=== PATIENT | female | born 1980 | race Caucasian/White ===

== ENCOUNTER 2024-01-12 09:13 | Outpatient (AMB) | payer OTHER, SELFPAY ==
--- NOTE | 2024-01-12 09:32 | AM.OFFWIN_ITS ---
Intake Vital Signs 01/12/24 09:41 Height 5 ft 3 in Weight 198 lb 8 oz BMI 35.2 BP 110/80 Blood Pressure Location Rt brachial Respiration 16 Pulse 85 Pulse Source Pulse Oximeter Temp 98.2 F Temp Source Oral Intake Visit Reasons: back pain Intake Note: Lower back pain Patient Tobacco Use Status: Never used Tobacco Is last menstrual period known: Yes Last menstrual period: 01/09/24 Patient : No Allergies azithromycin Allergy (Severe, Verified 01/12/24 09:47) stomach pain latex Allergy (Unknown, Verified 01/12/24 09:47) rash Medication List - Last Reconciled 01/12/24 by Bernardo Dallas CNP albuterol sulfate 90 mcg/actuation inhalation cetirizine (Zyrtec) 10 mg PO DAILY PRN cyclobenzaprine 5 mg PO BEDTIME famotidine (Pepcid) 20 mg PO DAILY fluticasone propionate 220 mcg/actuation 2 puffs inhalation BID fluticasone propionate 50 mcg/actuation 2 sprays intranasal DAILY Do you need a note to return to daycare/school/sports/work: No HPI HPI Comments History of Present Illness Details 43-year-old female presents with complai nts of persistent low back pain for the past 3 weeks. She describes the pain as tightness, achy, and pressure. She also notes burning sensation to her right hip. She states that the pain is worse with position changes. She has been taking an old script of cyclobenzaprine 5 mg 3 times daily as needed and apply warm compresses without relief. She notes that she has had intermittent low back pain since she fell and landed on her coccyx at 4th grade. The last time she experienced back pain before her current symptoms was a year and half ago. The pain does not radiates to her lower extremities. She denies tingling, numbness, or loss of sensation. She notes that saw chiropractor in the past with good improvement. She has never had physical therapy for back pain. [facility] Social History Patient Tobacco Use Status: Never used Tobacco Patient : No Female Reproductive History Menstrual Date of last menstrual period: 01/09/24 Review of Systems Const Details: Const Denies chills, Denies fatigue, Denies fever(s), Denies headache(s) and Denies weakness ENT Denies dizziness and Denies headache(s) Card Denies chest pain, Denies lightheadedness, Denies dyspnea and Denies other (Palpitations) Resp Denies cough, Denies dyspnea, Denies wheezing and Denies other ( shortness of breath) GI Denies abdominal pain, Denies melena, Denies hematochezia, Denies change in bowel habits, Denies dyspepsia and Denies nausea Denies hematuria and Denies dysuria Musc Reports as per HPI Skin/Breast Denies rash, Denies unusual bruising and Denies wounds Neuro Denies abnormal gait, Denies dizziness, Denies headache(s), Denies memory loss, Denies numbness, Denies Sensory deficit (Neuro), Denies tingling and Denies weakness Psych Denies anxiety, Denies depression, Denies memory loss Endo Denies cold intolerance, Denies fatigue, Denies heat intolerance, Denies polydipsia and Denies polyuria Aller/Immun Denies wheezing Physical Exam Vital Signs: Last Vital Signs Temp 98.2 F 01/12/24 09:41 Pulse 85 01/12/24 09:41 Resp 16 01/12/24 09:41 BP 110/80 01/12/24 09:41 BMI result Body Mass Index 35.2 Const Other: Const General: well developed; No acute distress Nutritional Appearance: well nourished Orientation/consciousness: patient oriented x3 HEENT Head: Yes normocephalic and Yes atraumatic Eyes General: appearance normal, both eyes and all related structures Pupils: Equal, round and reactive pupils present EOM: EOMs intact bilaterally Resp Effort & Inspection: normal respiratory effort Auscultation: clear to auscultation bilaterally Cardio Rate: regular rate Rhythm: regular rhythm Heart sounds: S1 normal heart sound present, S2 normal heart sound present, no gallops, no murmurs and no rubs Bruits: no abdominal aortic bruits and no carotid bruits Back/Spine/Pelvis Back: no CVA tenderness Cervical Spine: cervical ROM normal and No Cervical spine tenderness Thoracic/Lumbar Spine: thoraco-lumbar ROM normal, No pain with thoraco-lumbar ROM, No thoracic spinal tenderness and No lumbar spinal tenderness Extrem General: Yes normal to inspection, No edema and No calf tenderness Negative straight leg raise bilaterally Neuro General: patient oriented x3 and gait normal, no focal neuro deficit Cranial nerves: Yes Equal, round and reactive pupils present Psych Affect: normal affect Assessment & Plan Assessment & Plan (1) Acute exacerbation of chronic low back pain: Code(s): M54.50 - Low back pain, unspecified; G89.29 - Other chronic pain Plan: Persistent pain x3 weeks, refractory to cyclobenzaprine 5 mg 3 times daily and warm compresses Lumbar spine nontender to palpation Naproxen ordered. Take as prescribed Will increase cyclobenzaprine to 10 mg 3 times daily. Take as prescribed Instructed on the risks, benefits, and potential adverse reactions of the medications Warm/cold compresses encouraged Follow-up with PCP with worsening or new symptoms. May referred to physical therapy Verbalized understanding and agreed with treatment plan Medications: New cyclobenzaprine 10 mg PO TID PRN 90 tabs 1RF muscle spasm naproxen 500 mg PO BID PRN 60 tabs 1RF pain Coding Level of Care Code Est Pt Level 3 (69741) Diagnoses Acute exacerbation of chronic low back pain M54.50; G89.29
[2024-01-12 09:41] VITALS: BP 110/80; PULSE 85; RESP 16; TEMP 36.8; BMI 35.2
== END 2024-01-12 09:59 | disposition home or self-care (01) ==
PROVIDERS: PCP Internal Medicine; Visit Provider Nurse Practitioner Family
DX: M54.50 Low back pain, unspecified (principal); G89.29 Other chronic pain
CPT/HCPCS: 99213

== ENCOUNTER 2024-06-11 13:10 | Outpatient (AMB) | payer OTHER, SELFPAY ==
[2024-06-11 13:21] VITALS: BP 104/52; PULSE 106; O2SAT 98; BMI 36.1
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
== END 2024-06-11 16:48 | disposition home or self-care (01) ==
PROVIDERS: PCP Internal Medicine; Visit Provider Internal Medicine
DX: R73.03 Prediabetes (principal); E66.01 Morbid (severe) obesity due to excess calories; Z68.36 Body mass index [BMI] 36.0-36.9, adult
CPT/HCPCS: 99214

== ENCOUNTER 2024-06-11 14:04 | Outpatient (REF) | payer OTHER, SELFPAY ==
[2024-06-12 05:18] LABS: Estimated Average Glucose 140 mg/dL; Hemoglobin A1c % 6.5 % (<6.0)
== END 2024-06-11 14:05 | disposition home or self-care (01) ==
LOC: HO.WFDLDS 14:04
PROVIDERS: Visit Provider Internal Medicine
DX: R73.03 Prediabetes (principal)
CPT/HCPCS: 36415; 83036

== ENCOUNTER 2024-07-23 07:01 | Outpatient (RCR) | payer OTHER, SELFPAY ==
[2024-06-25 07:10] VITALS: BP 108/60; PULSE 97; O2SAT 97
== END 2024-09-05 10:07 | disposition home or self-care (01) ==
LOC: HO.PTWFD 07:01
PROVIDERS: PCP Internal Medicine
DX: M54.50 Low back pain, unspecified (principal)
CPT/HCPCS: 97110; 97140; 97161; 97535

== ENCOUNTER 2024-08-16 09:21 | Outpatient (REF) | payer OTHER, SELFPAY ==
--- NOTE | ~2024-08-16 | XR_ITS ---
EXAMINATION: XR ABDOMEN KUB CLINICAL INDICATION: Abdominal pain. COMPARISON: None available. TECHNIQUE: AP supine views of the abdomen. FINDINGS: Nonobstructive bowel gas pattern. Mild stool burden. Phlebolith within the right pelvis. No abnormal soft tissue calcification. No acute osseous abnormality. XR/XR KUB IMPRESSION: Nonobstructive bowel gas pattern. Mild stool burden. Electronically signed by: Jelani Yang MD 08/16/2024 12:33 PM [facility]
== END 2024-08-16 09:22 | disposition home or self-care (01) ==
LOC: HO.XRAY 09:21
PROVIDERS: PCP Internal Medicine; Visit Provider Internal Medicine
DX: R10.9 Unspecified abdominal pain (principal)
CPT/HCPCS: 74018

== ENCOUNTER 2024-08-16 09:21 | Outpatient (AMB) | payer OTHER, SELFPAY ==
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
[2024-08-16 09:41] VITALS: BP 112/76; PULSE 116; TEMP 36.8; O2SAT 97; BMI 33.9
== END 2024-08-16 10:30 | disposition home or self-care (01) ==
PROVIDERS: PCP Internal Medicine; Visit Provider Internal Medicine
DX: R10.84 Generalized abdominal pain (principal); R10.9 Unspecified abdominal pain; N91.2 Amenorrhea, unspecified

== ENCOUNTER 2024-08-16 10:22 | Outpatient (REF) | payer OTHER, SELFPAY ==
[2024-08-16 14:05] LABS: MANUAL DIFF FLAG NO
[2024-08-16 14:13] LABS: Basophils Percent Auto 0.3 % (0-2); Eosinophils Absolute Auto 0.1 X10*3/uL (0.0-0.4); Eosinophils Percent Auto 0.8 % (0-4); Hemoglobin 12.3 g/dl (12.0-16.0); Imm Gran Abs Auto 0.04 X10*3/uL (0.00-0.03); Imm Gran Pct Auto 0.5 % (0.0-0.4); Lymphocytes Absolute Auto 0.8 X10*3/uL (1.2-4.9); Lymphocytes Percent Auto 10.8 % (20-40); Mean Corpuscular HGB Conc 33.2 g/dl (31.0-35.0); Mean Corpuscular Hemoglobin 27.7 pg (27.0-33.0); Mean Corpuscular Volume 83.3 fL (80.0-98.0); Mean Platelet Volume 9.4 fL (9.4-12.3); Monocytes Absolute Auto 0.3 X10*3/uL (0.1-1.2); Monocytes Percent Auto 3.9 % (2-11); Neutrophils Absolute Auto 6.2 x10*3/uL (2.0-8.3); Neutrophils Percent Auto 83.7 % (45-73); Platelet Count 365 X10*3/uL (160-400); Red Blood Count 4.44 X10*6/uL (4.20-5.50); Red Cell Distribution Width 13.2 % (11.0-16.0); White Blood Count 7.4 X10*3/uL (4.8-10.8)
[2024-08-16 14:26] LABS: Anion Gap 11 (12-20); Blood Urea Nitrogen 18 mg/dL (9-16); Calcium 9.2 mg/dL (8.4-10.2); Carbon Dioxide 26 mmol/L (22-29); Chloride 101 mmol/L (96-108); Estimated Glomerular Filt Rate > 60; Glucose Random 128 mg/dL (60-115); Potassium 3.6 mmol/L (3.3-5.1); Sodium 134 mmol/L (135-145)
[2024-08-16 14:46] LABS: Erythrocyte Sedimentation Rate 59 MM/HR (0-20)
[2024-08-17 14:09] LABS: Lutenizing Hormone 4.9 mIU/mL
[2024-08-25 04:03] LABS: Estradiol Ultra Sensitive 186 pg/mL
== END 2024-08-16 10:23 | disposition home or self-care (01) ==
LOC: HO.WFDLDS 10:22
PROVIDERS: Visit Provider Internal Medicine
DX: R10.9 Unspecified abdominal pain (principal); N91.2 Amenorrhea, unspecified
CPT/HCPCS: 36415; 80048; 82670; 83002; 85025; 85652

== ENCOUNTER 2024-09-06 09:02 | Outpatient (AMB) | payer OTHER, SELFPAY ==
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
[2024-09-06 09:38] VITALS: BP 98/76; PULSE 116; O2SAT 97; BMI 33.0
== END 2024-09-06 10:09 | disposition home or self-care (01) ==
PROVIDERS: PCP Internal Medicine; Visit Provider Internal Medicine
DX: E11.9 Type 2 diabetes mellitus without complications (principal); J45.40 Moderate persistent asthma, uncomplicated

== ENCOUNTER → 2024-09-06 09:02 | Outpatient (BNVA) | payer OTHER, SELFPAY | PROVIDERS: PCP Internal Medicine; Visit Provider Internal Medicine ==

== ENCOUNTER 2024-12-18 07:45 | Outpatient (REF) | payer OTHER, SELFPAY ==
[2024-12-18 09:18] LABS: Estimated Average Glucose 123 mg/dL; Hemoglobin A1c % 5.9 % (<6.0)
[2024-12-18 09:41] LABS: Cholesterol 219 mg/dL (<200); HDL Cholesterol 34 mg/dL (>40); LDL Cholesterol Calculated 154 mg/dL (<100); Triglycerides 157 mg/dL (<150)
== END 2024-12-18 07:46 | disposition home or self-care (01) ==
LOC: HO.WFDLDS 07:45
PROVIDERS: Visit Provider Internal Medicine
DX: E11.9 Type 2 diabetes mellitus without complications (principal); Z13.220 Encounter for screening for lipoid disorders
CPT/HCPCS: 36415; 80061; 83036

== ENCOUNTER 2025-03-11 08:58 | Outpatient (AMB) | payer OTHER, SELFPAY ==
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
[2025-03-11 09:07] VITALS: BP 114/68; PULSE 99; TEMP 37; O2SAT 98; BMI 28.5
--- OUTSIDE RECORDS SUMMARY | 2025-03-11 09:35 | XMS_ITS | Data Portability ---
Author Organization [place] [facility], Allergy Address [address] [address] Care Team Providers Care It Operations Analyst Name Role Phone ANDREA FUENTESAH Primary Care Provider [phone] Assessment Encounter Date Assessment Date Assessment LastModified by Organization Details LastModified Time 06/26/2024 06/26/2024 Patient's status post balloon dilation of eustachian tubes with placement of temporary ventilation tubes 11/24/2023. Today's exam reveals that the right tube has extruded, the tympanic membrane has healed, and while there is no effusion, there is a mild global retraction without unsafe pockets or debris collection. Recommend fluticasone during the cold and flu season and her allergy exacerbations. For the itching, we reviewed the rationale for dry ear precautions and how to accomplish this. Can use Lotrisone for several days at a time during flare-ups, but no longer than two weeks in a row due to possibility of skin thinning from the steroid. Follow up in 6 months for tube check, sooner with issues. [email or web address] Not available 06/26/2024 10:49:39 09/23/2024 09/23/2024 44-year-old sony gallegos presents for reevaluation following eustachian tube dilation. On examination bilateral tubes have extruded and were removed from the canal. Right TM is normal to inspection without retraction and with well aerated middle ear space. The left ear shows a generally thickened drum which makes assessment of the middle ear somewhat difficult. Audiometric testing today shows normal hearing and type a tympanogram bilaterally. The sensation of hearing her breath is likely related to patulous eustachian tube. She does continue to use Flonase which may be exacerbating the issue. I have recommended she discontinue use of Flonase. If she continues to have symptoms could consider patulend. For eczema in the ear recommended DermOtic with continued use of Lotrisone. Follow-up in 2 to 3 months for reevaluation. [email or web address] Not available 09/23/2024 12:06:04 02/12/2025 02/12/2025 Status post bilateral balloon dilation of eustachian tube back in November 2021. Her obstructive eustachian tube dysfunction has resolved. Unfortunately it appears that her right side has developed patulous eustachian tube. This is not present on the left side. Today we discussed the pathophysiology of this process and how it is responsible for her autophony and fluctuating pressure sensation. Today we discussed the treatments available for patulous eustachian tube including use of Patulend nasal drops, compounded estrogen nose drops versus consultation with Dr. Sin Denton at [facility] to discuss other treatments for patulous eustachian tube. She has taken this under advisement and will think about these options prior to making any decisions. [email or web address] Not available 02/12/2025 10:09:31 Plan of Treatment Reminders Order Date Submit Date Provider Last Modified By Organization Details Last Modified Time Details Appointments None recorded. Lab None recorded. Referral None recorded. Procedures None recorded. Surgeries None recorded. Imaging None recorded. Medication Orders fluocinolon e acetonide oil 0.01 % ear drops 2023 024 [id number], [address], [place], [id number], 4 12:06:56 clotrimazol e-betametha sone 1 %-0.05 % topical cream 2023 025 [place] [id number], [address], [place], [id number], 5 09:52:15 Patient TargetsNo targets recorded. Patient InstructionsNo instructions recorded. Reason for Referral None Reported. Results Created Date Observation Date Name Description Value Unit Range Abnormal Flag Note LastModifiedBy Organization Detail LastModifiedTime 05/23/20 24 12/21/2023 imagi ng/di agnos tic resul t No observ ation record ed. [email or web address] Not Available 03:40:24 05/23/20 24 07/14/2022 imagi ng/di lolis tic resul t No observ ation record ed. [email or web address] Not Available 03:40:59 06/27/20 24 audio gram No observ ation record ed. [email or web address] Not Available 06/03 14:19:59 09/23/20 24 audio gram No observ ation record ed. [email or web address] Not Available 2023 13:53:00 02/13/20 audio gram No observ ation record ed. [email or web address] Not Available 2024 12:04:23 Result Notes None recorded. Problems Name Problem SNOMED Code Status Onset Date Resolution Date Notes Provider Name and Address Organization Details Recorded Time Bilateral tinnitus 08064494281 02 Active 2021 Tinnitus, bilateral ; Note: Date Diagnosed : 2 2:27 PM (H93.13) Not Available [facility] 4 02:48:04 Bilateral disorder of Eustachia n tubes 44965924459 17552 Active 2021 Other specified disorders of Eustachia n tube, bilateral ; Note: Date Diagnosed : 2 2:23 PM (H69.83) Not Available [facility] 4 02:48:08 Recurrent acute serous otitis media of left middle ear 64169755910 84990 Active 2022 Acute serous otitis media, recurrent , left ear; Note: Date Diagnosed : 06/15/2023 9:17 AM (H65.05) Not Available [facility] 4 02:48:04 Adhesive middle ear disease 2806434 Active 2022 Adhesive middle ear disease, bilateral ; Note: Date Diagnosed : 01/24/2023 4:59 PM (H74.13) Not Available [facility] 4 02:48:06 Allergic urticaria 87335149 Active 2023 Allergic urticaria ; Note: Date Diagnosed : 10/03/2023 3:03 PM (L50.0) Not Available [facility] 4 02:48:04 Dermal mycosis 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 Active 2023 VICKIE JEFFRIES MD [address] [facility],[place] [address], [place], [address] , [facility] - [facility] 4 15:32:48 Chronic mycotic otitis externa 098216046 Active 2023 VICKIE JEFFRIES MD [address] [facility],[place] [address], [place], [address] , [facility] - [facility] 4 15:32:48 Candidal otitis externa 83882906 Active 2023 VICKIE JEFFRIES MD [address] [facility],[place] [address], [place], [address] , [facility] - [facility] 4 15:32:48 Acute maxillary sinusitis 68284316 Active 2023 VICKIE JEFFRIES MD [address] [facility],[place] [address], [place], [address] , [facility] - [facility] 4 15:35:32 Eczema of external auditory canal 14338362 Active 2023 APPLE STEINBERG PA-C [address] [facility],[place] [address], [place], [address] , [facility] - [facility] 4 12:06:14 Sensorine ural hearing loss of bilateral ears 212661121 Active 2024 Bola KESSLER [address] [facility],[place] [address], [place], [place], [address] , [facility] - [facility] 5 09:15:21 Patulous right Eustachia n tube 34472442819 05938 Active 2024 VICKIE JEFFRIES MD [address] [facility],[place] [address], [place], [address] , [facility] - [facility] 5 10:06:24 Problem Notes None recorded. Procedures Surgical History Date Name Laterality Status Provider Name and Address Organization Details Recorded Time 02/13/20 25 Air & Speech Audio with Tymps - 74770, 74520 & 96833 completed Bola KESSLER [address] [facility], [place], [address], [facility] 02/12/2025 09:14:02 09/23/20 24 Air & Speech Audio with Tymps - 83328, 84414 & 34017 completed JUAN PABLO TROYEDIE, AUD [address] [facility] [address], [place], [address], [facility] 09/23/2024 10:27:29 06/26/20 24 Tympanometry - 23041 completed SANCHEZDEMETRICE ACOSTA, AUD [address] [facility] [address], [place], [address], [facility] 06/26/2024 10:19:39 Imaging Results None recorded. Procedure Notes None recorded. Medical Equipment None Reported. Allergies Allergen ID Allergen Name Allergen Category Reaction Reaction Severity Criticality Documentation Date Start Date Code Code System Note Provider Name and Address Organization Details Recorded Time [id number] linalool, (+-)- Not available other Not available Not available 02/13/2024 48291 96 RxNorm React ion: Unkno wn; Not Available [facility] 4 01:12:33 331928 Latex (substanc e) environme nt,medica tion other Not available Not available 05/03/2024 15805 8007 SNOMED React ion: Unkno wn; Not Available [facility] 4 00:30:53 817002 2-methyl- 4-isothia zolin-3-o ne Not available other Not available Not available 05/03/2024 44210 66 RxNorm React ion: Unkno wn; Not Available [facility] 4 00:30:53 725436 methyldib tinsley glutaroni trile Not available other Not available Not available 05/03/2024 16380 44 RxNorm React ion: Unkno wn; Not Available [facility] 4 00:30:54 328450 [place] oil medicatio n other Not available Not available 05/03/2024 16251 14 RxNorm React ion: Unkno wn; Not Available [facility] 4 00:30:54 Medications Name Sig Start Date Stop Date Status Note LastModified by Organization Details LastModified Time cyclobenzap rine 10 mg tablet TAKE 1 TABLET BY MOUTH THREE TIMES DAILY NEEDED FOR MUSCLE SPASM 02/12 completed Not Available Not Available Not Available amoxicillin 500 mg capsule TAKE 1 CAPSULE BY MOUTH THREE TIMES DAILY FOR 10 DAYS 02/19 completed Not Available Not Available Not Available acetaminoph en 325 mg tablet TAKE 2 TABLETS BY MOUTH EVERY 4 HOURS NEEDED FOR PAIN active Not Available Not Available No t Available prednisone 10 mg tablet 02/19 completed Not Available Not Available Not Available doxycycline hyclate 100 mg capsule TAKE 1 CAPSULE BY MOUTH TWICE DAILY FOR 10 DAYS 02/19 completed Not Available Not Available Not Available cetirizine 10 mg tablet 1 tablet every day by oral route. 02/11 completed Not Available Not Available Not Available ibuprofen 800 mg tablet TAKE 1 TABLET BY MOUTH EVERY 8 HOURS. DO NOT USE IF USING NAPROXEN active Not Available Not Available No t Available benzonatate 200 mg capsule TAKE 1 CAPSULE BY MOUTH THREE TIMES DAILY NEEDED FOR COUGH 02/19 completed Not Available Not Available Not Available senna 8.6 mg tablet TAKE 2 TABLETS BY MOUTH EVERY NIGHT AT BEDTIME NEEDED FOR CONSTIPAT ION active Not Available Not Available No t Available prednisone 20 mg tablet TAKE 2 TABLETS BY MOUTH DAILY FOR 5 DAYS 02/19 completed Not Available Not Available Not Available spironolact one 100 mg tablet TAKE 1 TABLET BY MOUTH DAILY active Not Available Not Available No t Available pimecrolimu s 1 % topical cream APPLY TOPICALLY TO THE AFFECTED AREA TWICE DAILY active Not Available Not Available No t Available Accu-Chek Softclix Lancets USE TO TEST DIRECTED 02/11 completed Not Available Not Available Not Available phentermine 37.5 mg tablet 1 tablet every day by oral route. 2023 active Not Available Not Available Not Avai lable minoxidil 2.5 mg tablet TAKE 1/2 TABLET BY MOUTH DAILY active Not Available Not Available No t Available ofloxacin 0.3 % ear drops INSTILL 3 DROPS IN BOTH EARS TWICE DAILY 02/19 completed Not Available Not Available Not Available famotidine 20 mg tablet 1 tablet every day by oral route. active Not Available Not Available No t Available clotrimazol e-betametha sone 1 %-0.05 % topical cream APPLY TO THE SKIN OF THE AFFECTED EXTERNAL EAR CANAL WITH FINGERTIP THREE TIMES DAILY FOR 2 WEEKS 02/12 completed Not Available Not Available Not Available bisacodyl 5 mg tablet,sindy yed release TAKE 1 TABLET BY MOUTH DAILY active Not Available Not Available No t Available epinephrine 0.3 mg/0.3 mL injection, auto-inject or INJECT 1 PEN IN THE MUSCLE ONE TIME DIRECTED NEEDED active Not Available Not Available No t Available polyethylen e glycol 3350 17 gram/dose oral powder DISSOLVE 17 GRAMS IN WATER AND DRINK DAILY active Not Available Not Available No t Available albuterol sulfate HFA 90 mcg/actuati on aerosol inhaler INHALE 2 PUFFS BY MOUTH EVERY 4 HOURS active Not Available Not Available No t Available fluticasone propionate 50 mcg/actuati on nasal spray,suspe nsion SHAKE LIQUID AND USE 2 SPRAYS IN EACH NOSTRIL DAILY active Not Available Not Available No t Available phentermine 37.5 mg capsule TAKE 1 CAPSULE BY MOUTH DAILY 02/11 completed Not Available Not Available Not Available naproxen 500 mg tablet TAKE 1 TABLET BY MOUTH TWICE DAILY NEEDED FOR PAIN active Not Available Not Available No t Available amoxicillin 875 mg-potassiu m clavulanate 125 mg tablet TAKE 1 TABLET BY MOUTH EVERY 12 HOURS FOR 7 DAYS WITH FOOD OR MILK 02/11 completed Not Available Not Available Not Available simethicone 80 mg chewable tablet CHEW AND SWALLOW 2 TABLETS BY MOUTH THREE TIMES DAILY NEEDED FOR GAS active Not Available Not Available No t Available oxycodone 5 mg tablet TAKE 1 TABLET BY MOUTH EVERY 6 HOURS NEEDED FOR PAIN active Not Available Not Available No t Available fluocinolon e acetonide oil 0.01 % ear drops INSTILL 2 DROPS IN THE EAR TWICE WEEKLY NEEDED FOR ITCHING active Not Available Not Available No t Available Accu-Chek Guide test strips USE DIRECTED ONCE DAILY 02/11 completed Not Available Not Available Not Available Accu-Chek Guide Me Glucose Meter USE DIRECTED 02/11 completed Not Available Not Available Not Available Vitals Date Recorded Body height Provider Name an d Address Organization Details Last Updated DateTime 02/12/2025 160.02 cm Zaynab Loera [place] - [facility] 02/12/2025 09:51:08 Date Recorded Body height Body mass index (BMI) Body weight Provider Name and Address Organization Details Last Updated DateTime 06/26/2024 160.02 cm 35.4 kg/m2 62833.47 g Edilma Drew [facility] 06/26/2024 10:04:23 Date Recorded Body height Body mass index (BMI) Body weight Provider Name and Address Organization Details Last Updated DateTime 09/23/2024 160.02 cm 35.4 kg/m2 88620.47 g Jane Lang [facility] 09/23/2024 10:07:43 Social History Question Answer Notes LastModified by Organizat ion Details LastModified Time Tobacco Smoking Status Never Smoker Zaynab dior [facility] 02/20/2024 15:22:06 What Type Of Testing Director Do You Use? None [email or web address] Information not available 02/12/2025 Do You Have Any Pets? Yes [email or web address] Information not available 02/12/2025 Are You Passively Exposed To Smoke? No [email or web address] Information not available 02/12/2025 Are There Any Smokers In Your House? No [email or web address] Information not available 02/12/2025 Sex: Unknown Functional Status Question Answer Note LastModified by Organization Details LastModified Time Do you use any illicit or recreational drugs? No [email or web address] Information not available 02/12/2025 Do you or have you ever used any other forms of tobacco or nicotine? No [email or web address] Information not available 02/12/2025 What is your level of alcohol consumption? None [email or web address] Information not available 02/12/2025 What type of noise exposure are you exposed to? noExposureToExcessiveNoise [email or web address] Infor mation not available 02/12/2025 Mental Status None recorded. Family History Relationship Description Onset Age of this Age Resolved Age Notes LastModified by Organization Details LastModified Time Mother Migraine [email or web address] Not avail able 02/12/2025 09:53:39 Mother Vertigo [email or web address] Not availa ble 02/12/2025 09:53:40 Mother Diabetes mellitus [email or web address] Not available 09:53:40 Sister Migraine [email or web address] Not avail able 02/12/2025 09:53:40 Father Hereditary hearing loss [email or web address] Not available 02/12/2025 09:53:40 Medical History Condition Response Allergies/Hayfever Y Heart Problems N Anxiety N Tonsil Infections N Emphysema N Migraines N Thyroid Problems N Glaucoma N Depression N COPD N Developmental Delay N Nasal or Sinus Problems N Anemia N Immune System Disorder N Anesthesia Complications N Heart Attack (OR) N Other Skin Condition Y Diabetes N Rhinitis N Bleeding Disorder N Food Allergy N Arthritis N Hearing Loss N Hyperlipidemia N Cancer N Stroke N Dementia N Nasal polyps N Asthma Y High Cholesterol Y Sleep Disorder N GERD/Reflux N Liver Disease N Headaches Y Fibromyalgia N Hypertension N Speech Delay N Kidney Disease N Gynecological HistoryNo gynecological history recorded. Obstetrics History GPAL:G 0 P 0 0 0 0 Past Encounters Encounter ID Performer Location Encounter Start Date Encounter Closed Date Diagnosis/Indication Diagnosis SNOMED-CT Code Diagnosis ICD10 Code Diagnosis Note [id number] VICKIE JEFFRIES MD [facility] [address] [address] 02/20/2024 14:44:20 02/20/2024 15:38:45 Bilateral disorder of Eustachian tubes 0486722946 372743 H69.83 Both tympanosto my tubes remain in good position and patent. Continue with observatio n and follow-up with the PA in 4 months for tube check. Dermal mycosis 70708219 B36.9 The skin of the bilateral external auditory canal is showing signs of fungal dermatitis . Recommend applicatio n of clotrimazo le/betamet hasone cream to be applied by fingertip to the external auditory meatus three times a day for two weeks. Patient may repeat this as necessary for recurrence of symptoms. Prescripti on sent to patient's pharmacy. Avoidance of Q-tips recommende d to reduce the risk of recurrence . Acute covingtoni ary sinusitis 76172326 J01.00 Patient's recent symptoms are consistent with acute sinusitis which is in the process of resolving. Recommende d oxymetazol ine nasal spray to be used twice a day for 4 days only. Recommende d use of nasal saline spray to help wash out the nasal cavities and sinuses. Unlikely she will need antibiotic s. [id number] MONIKA PEOPLES PA-C [facility] [address] [place] [address] 06/26/2024 09:40:01 06/26/2024 10:37:15 Bilateral disorder of Eustachian tubes 0830403225 675121 H69.83 Tympanomet ry:Right ear: Type CLeft ear: Type B, Large volume Adhesive m iddle ear disease 3345163 H74.13 [id number] APPLE STEINBERG PA-C [facility] [address] [address] 09/23/2024 10:01:47 09/23/2024 11:09:17 Bilateral disorder of Eustachian tubes 0327647742 263010 H69.93 Right Ear:Normal hearing .Type A tympanogra m.Left Ear:Normal hearing.Ty pe A tympanogra m. Eczema of external auditory canal 85179088 H60.549 [id number] VICKIE JEFFRIES MD [facility] [address] [address] 02/12/2025 08:56:40 02/12/2025 11:38:33 Sensorineural hearing loss of bilateral ears 595070709 H90.3 Audiologic al evaluation results:Ri ght ear:Normal hearing from 250 through 6000 Hz sloping to a moderate sensorineu ral hearing loss with excellent word recognitio n.Left ear:Normal hearing from 250 through 6000 Hz sloping to a mild sensorineu ral hearing loss with excellent word recognitio n. Tympanomet ry:Right Ear:Type ALeft Ear:Type AWe went over her audiometri c testing in detail which shows excellent hearing bilaterall y with minimal high-pitch ed hearing loss. Patulous r ight Eustachian tube 9688374614 711355 H69.01 Health Concerns Section Related Observation LastModified by Organization Detai ls LastModified Time None Recorded Concern Status LastModified by Organization Details LastModified Time None Recorded Advance Directives Directive None Recorded Payers Insurance Date Sequence Insurance Name Policy Number Policy Yo Covered Member ID Yo Member ID Guarantor Name 02/12/2025 1 [facility] [id number] 3 Kristen Yo [id number] Kristen Yo Notes Date Note Type Note Provider Name and Address Organization Details Recorded Time 02/20/2024 text/html Status post bilateral balloon dilation of the eustachian tube with concurrent bilateral myringotomy tube placement on 11/24/2023. Postoperative testing in November showed patent tympanostomy tubes and normal audiometric thresholds bilaterally. Patient returns for reevaluation. The ears are feeling fine. About 8 days ago, patient had nasal stuffiness and blockage followed by significant green and yellow nasal discharge. No fevers but she does have some chills and headache. VICKIE JEFFRIES MD 100 [facility],[address], [address], [facility] 03/04/2024 07:43:08 06/26/2024 text/html 43 year old sony gallegos presents for tube check. Underwent balloon dilation of eustachian tubes and placement of temporary ventilation tubes on 11/24/[address] Jeffries. She reports the right ear still crackles at times. Reports her hearing is good and there is no otorrhea nor otalgia. The ears do itch, though the Lotrisone helps. She does not do anything specific to keep the ears dry when bathing, just tries to redirect the water. She uses Q-tips at the meatus. WANDA JANG MD [address] [facility],[address], [address], [facility] 06/26/2024 12:42:29 09/23/2024 text/html 44-year-old sony gallegos with history of bilateral eustachian tube dilation presents for reevaluation. Eustachian tube dilation was performed nearly a year ago. She had normalized hearing test following procedure. Temporary tubes were in place at last visit. Over the last few months however she has been having ear fullness. She also has extended periods of time nearly every day where she can hear her self breathing. Continues to have ear itching for which she uses Lotrisone. Does feel the itching is further down and wants to know if there is something different to use for those instances. History of eczema. WANDA JANG MD [address] [facility],[address], [address], [facility] 09/23/2024 13:00:45 02/12/2025 text/html Status post bilateral balloon dilation of eustachian tube with concurrent myringotomy tube placement in November 2023. Patient last seen in September at which point both tympanostomy tubes were noted to have extruded. Both tympanic membranes were free of retraction, but she was noticing periods of time when she was noticing hearing her own breathing in the ear, possibly indicative of patulous eustachian tube. She reports noticing this about 90% of the time. PA recommended discontinuing topical Flonase spray. VICKIE JEFFRIES MD [address] [place] [address], [address], [facility] - [facility] 02/12/2025 10:10:30 OBGyn Episode No OBEpisode recorded.
== END 2025-03-11 09:41 | disposition home or self-care (01) ==
LOC: HO.HMCFM 08:59
PROVIDERS: PCP Internal Medicine; Visit Provider Internal Medicine
DX: E11.9 Type 2 diabetes mellitus without complications (principal); E78.00 Pure hypercholesterolemia, unspecified; J45.40 Moderate persistent asthma, uncomplicated

== ENCOUNTER → 2025-03-11 08:58 | Outpatient (BNVA) | payer OTHER, SELFPAY | PROVIDERS: PCP Internal Medicine; Visit Provider Internal Medicine | DX: Z13.31 Encounter for screening for depression (principal); E11.9 Type 2 diabetes mellitus without complications; E78.00 Pure hypercholesterolemia, unspecified; J45.40 Moderate persistent asthma, uncomplicated | CPT/HCPCS: 96127 ==

== ENCOUNTER 2025-03-11 09:59 | Outpatient (REF) | payer OTHER, SELFPAY ==
[2025-03-11 11:48] LABS: Estimated Average Glucose 123 mg/dL; Hemoglobin A1c % 5.9 % (<6.0); Total Hemoglobin (HGBA1C) 3517.6598 umol/L
[2025-03-11 11:49] LABS: Alanine Aminotransferase 28 U/L (0-31); Albumin Level 4.6 g/dL (3.5-5.0); Alkaline Phosphatase 186 U/L (39-117); Anion Gap 10 (12-20); Aspartate Amino Transferase 25 U/L (5-31); Bilirubin Total 0.3 mg/dL (0.0-1.0); Blood Urea Nitrogen 15 mg/dL (9-16); Calcium 9.9 mg/dL (8.4-10.2); Carbon Dioxide 29 mmol/L (22-29); Chloride 104 mmol/L (96-108); Cholesterol 244 mg/dL (<200); Estimated Glomerular Filt Rate > 60; Glucose Random 120 mg/dL (60-115); HDL Cholesterol 37 mg/dL (>40); LDL Cholesterol Calculated 166 mg/dL (<100); Potassium 4.1 mmol/L (3.3-5.1); Sodium 139 mmol/L (135-145); Total Protein 7.9 g/dL (6.5-8.0); Triglycerides 208 mg/dL (<150)
[2025-03-11 15:30] LABS: Creatinine Urine 68.58 mg/dL; Microalbum/Creatinine Ratio Ur 10.2 ug/mg cr (<30)
== END 2025-03-11 10:00 | disposition home or self-care (01) ==
LOC: HO.WFDLDS 09:59
PROVIDERS: Visit Provider Internal Medicine
DX: E11.9 Type 2 diabetes mellitus without complications (principal); J45.40 Moderate persistent asthma, uncomplicated
CPT/HCPCS: 36415; 80053; 80061; 82043; 82570; 83036

== ENCOUNTER 2025-06-27 07:29 | Outpatient (REF) | payer OTHER, SELFPAY ==
--- OUTSIDE RECORDS SUMMARY | 2025-06-27 07:33 | XMS_ITS | Clinical Summary ---
Author Organization [facility] Address [address] [place] [address] Phone Care Team Providers Care Team Lead Name Role Phone Kathryn De La Vega MD Primary Care Provider Allergies No known active allergies Surgical History Surgery Date Site/Laterality Comments OTHER SURGICAL HISTORY 2006 PROCEDURE: HISTORICAL EAR SURGERY; COMMENT: tubes on ear TONSILLECTOMY ADENOIDECTOMY, BILATERAL MYRINGOTOMY AND TUBES child PROCEDURE: SD TONSILLECTOMY & ADENOIDECTOMY <AGE 13 Medical History Medical History Date Comments Asthma DX:Asthma; COMME NT: PFTs 03/09/11 showed FEV1 89% High cholesterol DX:High cholest aubrie PCOS (polycystic ovarian syndrome) DX:PCOS (polycystic ovarian syndrome) Abnormal Pap smear of cervix 01/2012 DX: Abnormal Pap smear of cervix; COMMENT: GLADYS I. 3 paps following (09/12, 02/11, 09/13 WNL) Family History Medical History Relation Name Comments Anemia Father Hyperlipidemia Father Hypertension Father Colon cancer Father's side Paternal great uncle (PGM's brother) Heart failure Maternal Grandmother Thyroid disease Maternal Grandmother Diabetes Mother Hypertension Mother Colon cancer Paternal Grandmother Breast cancer Neg Hx Ovarian cancer Neg Hx Prostate cancer Neg Hx Uterine cancer Neg Hx Relation Name Status Comments Daughter Makara Alive Father Alive HTN Father's side Maternal Grandfather MVA Maternal Grandmother Heart F ailure Mother Alive DM type 2 Paternal Grandfather (Age 83) Pn eumonia Paternal Grandmother (Age 80) Pn eumonia Sister Alive High cholestero l Social History Tobacco Use Types Packs/Day Years Used Date Smoking Tobacco: Never Smokeless Tobacco: Never Alcohol Use Standard Drinks/Week Comments Yes 0 (1 standard drink = 0.6 oz pur e alcohol) Comments Unknown Sex and Gender Information Value Date Recorded Sex Assigned at Not on file Legal Sex Female 1:19 AM EST Gender Identity Not on file Sexual Orientation Not on file Obstetrics History Plan of Treatment Health Maintenance Due Date Last Done Comments Pneumococcal Vaccine: Pediatrics (0 to 5 Years) and At-Risk Patients (6 to 49 Years) (1 of 2 - PCV) 2000 Cervical Cancer Screening: Pap Smear 2002 HIV Screening 09/10/2022 Hepatitis C Screening 09/10/2022 Social Influencers of Health Screening 09/10/2022 Breast Cancer Screening 11/09/2023 11/09/19, 11/09/2021, 11/08/2021 Depression Screening 10/02/2024 COVID-19 Vaccine ( season) 2025 07/10/2021, 11/07/2020, 10/17/2020 Influenza Vaccine (#1) 2025 , 07/07/2023, 07/27/2022, Additional history exists DTaP,Tdap,and Td Vaccines (5 - Td or Tdap) 07/09/2028 07/09/2018, 03/19/2014, 08/09/2012, Additional history exists MMR Vaccines Completed 05/02/1994, 11/30/1982 Hepatitis B Vaccines Completed 05/02/1999, 11/30/1998, 11/02/1998 HIB Vaccines Aged Out No longer eligi ble based on patient's age to complete this topic HPV Vaccines Aged Out No longer eligi ble based on patient's age to complete this topic Hepatitis A Vaccines Aged Out No long er eligible based on patient's age to complete this topic IPV Vaccines Aged Out No longer eligi ble based on patient's age to complete this topic Meningococcal ACWY Vaccine Aged Out N o longer eligible based on patient's age to complete this topic Meningococcal B Vaccine Aged Out No l onger eligible based on patient's age to complete this topic RSV Immunization Patients Under 20 months Aged Out No longer eligible based on patient's age to complete this topic Varicella Vaccines Aged Out No longer eligible based on patient's age to complete this topic Procedures Procedure Name Priority Date/Time Associated Diagnosis Comments DX MAMMO INCL CAD UNI Routine 11/09/2021 7:24 AM EST Other abnormal and inconclusive findings on diagnostic imaging of breast from Last 3 Months or Most Recently Relevant to Health Maintenance Results * DX MAMMO INCL CAD UNI (11/09/2021 7:24 AM EST) Anatomical Region Laterality Modality Mammography 11/09/2021 4:40 PM EST Narrative 11/12/2021 4:24 PM EST Right breast mammogram, additional views. History motion artifact on the right MLO view. Microcalcifications in the upper outer right breast. Magnification views of the right breast in CC and MLO and straight lateral projections as well as repeat MLO view with 2-D and Tomosynthesis were obtained to follow 11/08/2021 exam. Microcalcifications of concern appear to be mostly punctate and loosely grouped. They are probably benign. No other focal abnormalities are identified as a precaution six-month follow-up mammogram of the right breast is recommended which could be limited to magnification views. Findings were explained to the patient. Appointment is scheduled. CONCLUSIONS: Probably benign microcalcifications in the upper outer right breast. BIRADS 3, probably benign findings. Procedure Note Olena Guy MD - 09/20/2022 Right breast mammogram, additional views. History motion artifact on the right MLO view. Microcalcifications inthe upper outer right breast. Magnification views of the right breast in CC and MLO and straight lateralprojections as well as repeat MLO view with 2-D and Tomosynthesis were obtained to wicvwp7711/08/2021 exam. Microcalcifications of concern appear to be mostly punctate and looselygrouped. They are probably benign. No other focal abnormalities are identified as aprecaution six- month follow-up mammogram of the right breast is recommended which could belimited to magnification views. Findings were explained to the patient. Appointment isscheduled. CONCLUSIONS: Probably benign microcalcifications in the upper outer rightbreast. BIRADS 3, probably benign findings. us Kathryn A De La Vega MD IMG BI PROCEDURES Final Result from Last 3 Months or Most Recently Relevant to Health Maintenance Insurance [facility] [address] [place] [address] Care Teams Team Lead Relationship Specialty Start Date End Date Kathryn De La Vega MD [address] [facility] [address] [place] [address] PCP - General Internal Medicine 12/02/24
--- OUTSIDE RECORDS SUMMARY | 2025-06-27 07:33 | XMS_ITS | Data Portability ---
Author Organization [place] - [facility], Allergy Address [address] [address] Care Team Providers Care Lease Attendant Name Role Phone WILY FUENTES Primary Care Provider Assessment Encounter Date Assessment Date Assessment LastModified [...] in 2 to 3 months for reevaluation. [email or web address] Not available 09/23/2024 12:06:04 02/12/2025 02/12/2025 Status [...] versus consultation with Dr. Sin Denton at [facility] to discuss other treatments for patulous eustachian tube. She has taken this under advisement and will think about these options prior to making any decisions. [email or web address] Not available 02/12/2025 10:09:31 Plan of Treatment Reminders Order Date Submit Date Provider Last Modified By Organization Details Last Modified Time Details Appointments None recorded. Lab None recorded. Referral None recorded. Procedures None recorded. Surgeries None recorded. Imaging None recorded. Medication Orders fluocinolon e acetonide oil 0.01 % ear drops 2023 024 [id number], [address], [place], [id number], 4 12:06:56 clotrimazol e-betametha sone 1 %-0.05 % topical cream 2023 025 [facility] #[id number], [address], [place], [id number], 5 09:52:15 Patient TargetsNo targets recorded. Patient InstructionsNo instructions recorded. Reason for Referral None Reported. Results Created Date Observation Date Name Description Value Unit Range Abnormal Flag Note LastModifiedBy Organization Detail LastModifiedTime 05/23/20 24 12/21/2023 imagi ng/di agnos tic resul t No observ ation record ed. [email or web address] Not Available 03:40:24 05/23/20 24 07/14/2022 imagi ng/di agnos tic resul t No observ ation record ed. [email or web address] Not Available 03:40:59 06/27/20 24 audio gram No observ ation record ed. [email or web address] Not Available 06/03 14:19:59 09/23/20 24 audio gram No observ ation record ed. BARCODE Not Available 2023 13:53:00 02/13/20 audio gram No observ ation record ed. BARCODE Not Available 2024 12:04:23 Result Notes None recorded. Problems Name Problem SNOMED Code Status Onset Date Resolution Date Notes Provider Name and Address Organization Details Recorded Time Bilateral tinnitus 48835057052 02 Active 2021 Tinnitus, bilateral ; Note: Date Diagnosed : 2 2:27 PM (H93.13) Not Available [facility] 4 02:48:04 Bilateral disorder of Eustachia n tubes 16440138392 22088 Active 2021 Other specified disorders of Eustachia n tube, bilateral ; Note: Date Diagnosed : 2 2:23 PM (H69.83) Not Available [facility] 4 02:48:08 Adhesive middle ear disease 9468282 Active 2022 Adhesive middle ear disease, bilateral ; Note: Date Diagnosed : 01/24/2023 4:59 PM (H74.13) Not Available [facility] 4 02:48:06 Recurrent acute serous otitis media of left middle ear 34245272216 99050 Active 2022 Acute serous otitis media, recurrent , left ear; Note: Date Diagnosed : 06/15/2023 9:17 AM (H65.05) Not Available [facility] 4 02:48:04 Allergic urticaria 31621514 Active 2023 Allergic urticaria ; Note: Date Diagnosed : 10/03/2023 3:03 PM (L50.0) Not Available [facility] 4 02:48:04 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 2023 VICKIE JEFFRIES MD [address] [facility],[place] [address], [place], [address] , [facility] - [facility] 4 15:32:48 Chronic mycotic otitis externa 726173443 Active 2023 VICKIE JEFFRIES MD [address] [facility],[place] [address], [place], [address] , [facility] - [facility] 4 15:32:48 Candidal otitis externa 73481255 Active 2023 VICKIE JEFFRIES MD [address] [facility],[place] [address], [place], [address] , [facility] - [facility] 4 15:32:48 Acute maxillary sinusitis 14770442 Active 2023 VIKCIE JEFFRIES MD [address] [facility],[place] [address], [place], [address] , [facility] - [facility] 4 15:35:32 Eczema of external auditory canal 97304813 Active 2023 APPLE STEINBERG PA-C [address] [facility],[place] [address], [place], [place], [address] , [facility] - [facility] 4 12:06:14 Sensorine ural hearing loss of bilateral ears 596292710 Active 2024 Bola KESSLER [address] [facility],[place] [address], [place], [address] , [facility] - [facility] 5 09:15:21 Patulous right Eustachia n tube 15358352096 94636 Active 2024 VICKIE JEFFRIES MD [address] [facility],[place] [address], [place], [address] , [facility] - [facility] 5 10:06:24 Problem Notes None recorded. Procedures Surgical History Date Name Laterality Status Provider Name and Address Organization Details Recorded Time 02/13/20 25 Air & Speech Audio with Tymps - 38350, 03936 & 41468 completed SONIYASABINA ARVIZU, AuD [address], [place], [address], [facility] 02/12/2025 09:14:02 09/23/20 24 Air & Speech Audio with Tymps - 20182, 30787 & 41899 completed JUAN PABLO FRAGASILVIA, AUD [address], [place], [address], [facility] 09/23/2024 10:27:29 06/26/20 24 Tympanometry - 21906 completed SANCHEZ MORALESNAUGH, AUD [address], [place], [address], [facility] 06/26/2024 10:19:39 Imaging Results None recorded. Procedure Notes None recorded. Medical Equipment None Reported. Allergies Allergen ID Allergen Name Allergen Category Reaction Reaction Severity Criticality Documentation Date Start Date Code Code System Note Provider Name and Address Organization Details Recorded Time 195339 linalool, (+-)- Not available other Not available Not available 02/13/2024 74882 96 RxNorm React ion: Unkno wn; Not Available [facility] 4 01:12:33 037458 Latex (substanc e) environme nt,medica tion other Not available Not available 05/03/2024 98008 8007 SNOMED React ion: Unkno wn; Not Available [facility] 4 00:30:53 882984 2-methyl- 4-isothia zolin-3-o ne Not available other Not available Not available 05/03/2024 52250 66 RxNorm React ion: Unkno wn; Not Available [facility] 4 00:30:53 117626 methyldib tinsley glutaroni trile Not available other Not available Not available 05/03/2024 23112 44 RxNorm React ion: Unkno wn; Not Available [facility] 4 00:30:54 452931 [place] oil medicatio n other Not available Not available 05/03/2024 88439 14 RxNorm React ion: Unkno wn; Not Available [facility] 4 00:30:54 Medications Name Sig Start Date [...] [place] - [facility] 02/12/2025 09:51:08 Date Recorded Body height Body mass index (BMI) Body weight Provider Name and Address Organization Details Last Updated DateTime 06/26/2024 160.02 cm 35.4 kg/m2 15757.47 g Edilma Drew [facility] 06/26/2024 10:04:23 Date Recorded Body height Body mass index (BMI) Body weight Provider Name and Address Organization Details Last Updated DateTime 09/23/2024 160.02 cm 35.4 kg/m2 19501.47 g Jane Lang [facility] 09/23/2024 10:07:43 Social History Question Answer Notes LastModified by Organizat ion Details LastModified Time Tobacco Smoking Status Never Smoker Zaynab dior [facility] 02/20/2024 15:22:06 What Type Of Composite Science Teacher Do You Use? None [email or web address] Information not available 02/12/2025 Do You Have Any Pets? Yes Information not available 02/12/2025 Are You Passively Exposed To Smoke? No [email or web address] Information not available 02/12/2025 Are There Any Smokers In Your House? No [email or web address] Information not available 02/12/2025 Sex: Unknown Functional Status Question Answer Note LastModified by Organization Details LastModified Time Do you use any illicit or recreational drugs? No [email or web address] Information not available 02/12/2025 Do you or have you ever used any other forms of tobacco or nicotine? No [email or web address] Information not available 02/12/2025 What is your level of alcohol consumption? None [email or web address] Information not available 02/12/2025 What type of noise exposure are you exposed to? noExposureToExcessiveNoise [email or web address] Infor mation not available 02/12/2025 Mental Status None recorded. Family History Relationship Description Onset Age of this Age Resolved Age Notes LastModified by Organization Details LastModified Time Mother Migraine [email or web address] Not avail able 02/12/2025 09:53:39 Mother Vertigo [email or web address] Not availa ble 02/12/2025 09:53:40 Mother Diabetes mellitus [email or web address] Not available 09:53:40 Sister Migraine [email or web address] Not avail able 02/12/2025 09:53:40 Father Hereditary hearing loss Not available 02/12/2025 09:53:40 Medical History Condition Response Allergies/Hayfever Y Heart Problems N Anxiety N Tonsil Infections N Emphysema N Migraines N Thyroid Problems N Glaucoma N Depression N COPD N Developmental Delay N Nasal or Sinus Problems N Anemia N Immune System Disorder N Anesthesia Complications N Heart Attack (SD) N Other Skin Condition Y Diabetes N [...] Diagnosis SNOMED-CT Code Diagnosis ICD10 Code Diagnosis IMO Codes Diagnosis Note [id number] VICKIE JEFFRIES MD [facility] [address] [address] 02/20/2024 14:44:20 02/20/2024 15:38:45 Bilateral disorder of Eustachian tubes 6665923278 948142 H69.83 Both tympanosto my tubes remain in good position and patent. Continue with observatio n and follow-up with the PA in 4 months for tube check. Dermal mycosis 91388408 B36.9 The skin of the bilateral external [...] reduce the risk of recurrence . Acute maxi llary sinusitis 64288259 J01.00 Patient's recent symptoms are consistent with acute sinusitis which is in the process of resolving. Recommende d oxymetazol ine nasal spray to be used twice a day for 4 days only. Recommende d use of nasal saline spray to help wash out the nasal cavities and sinuses. Unlikely she will need antibiotic s. [id number] MONIKA PEOPLES PA-C [facility] [address] [address] 06/26/2024 09:40:01 06/26/2024 10:37:15 Bilateral disorder of Eustachian tubes 3743043506 315724 H69.83 Tympanomet ry:Right ear: Type CLeft ear: Type B, Large volume Adhesive m iddle ear disease 2498723 H74.13 26501 APPLE STEINBERG PA-C [facility] [address] [address] 09/23/2024 10:01:47 09/23/2024 11:09:17 Bilateral disorder of Eustachian tubes 4180920781 114585 H69.93 Right Ear:Normal hearing .Type A tympanogra m.Left Ear:Normal hearing.Ty pe A tympanogra m. Eczema of external auditory canal 83058319 H60.549 [id number] VICKIE JEFFRIES MD [facility] [address] [address] 02/12/2025 08:56:40 02/12/2025 11:38:33 Sensorineural hearing loss of bilateral ears 266353429 H90.3 [id number] Audiologic al evaluation results:Ri ght ear:Normal hearing [...] hearing loss. Patulous r ight Eustachian tube 9004042009 563752 H69.01 [id number] Health Concerns Section Related Observation LastModified by Organization Detai ls LastModified Time None Recorded Concern Status LastModified by Organization Details LastModified Time None Recorded Advance Directives Directive None Recorded Payers Insurance Date Sequence Insurance Name Policy Number Policy Yo Covered Member ID Yo Member ID Guarantor Name 02/12/2025 1 [facility] [id number] Kristen Yo [id number] Kristen Yo Notes Date Note Type Note [...] chills and headache. VICKIE JEFFRIES MD [address] [facility],[address], [address], [facility] 03/04/2024 07:43:08 06/26/2024 text/html ROS as noted in the [facility] 43 year old female presents for tube check. Underwent balloon dilation [...] Q-tips at the meatus. WANDA JANG MD [address] [place] [address],[address], [address], [facility] 06/26/2024 12:42:29 09/23/2024 text/html ROS as noted in the [facility] 44-year-old female with history of bilateral eustachian tube dilation [...] History of eczema. WANDA JANG MD [address] [facility],[address], [address], [facility] 09/23/2024 13:00:45 02/12/2025 text/html Status post [...] discontinuing topical Flonase spray. VICKIE JEFFRIES MD [address] [place] [address], [place], [address], [facility] 02/12/2025 10:10:30 OBGyn Episode No OBEpisode recorded.
--- OUTSIDE RECORDS SUMMARY | 2025-06-27 07:33 | XMS_ITS | Patient Health Record ---
Author Organization [facility] Address [address] [facility] [address] [place] [address] Support Name Relationship Address Phone BOBBY WINSTON Guarantor Unknown [phone] Reason For Referral No Information Medications Medication SIG (Take, Route, Frequency, Duration) Notes Start Date End Date Status Vitamins 1 mg folate 1 ORAL daily; Duration: -3 Rubio-MJ 08/20/2013 Active Immunizations Vaccine Route Administration Date Status Comme nts Tdap Unknown 02/22/2013 Pending Problems Problem Type SNOMED Code ICD Code Onset Dates Problem Status W/U Status Risk Notes Problem Irritable bowel syndrome (24847047) Irritable bowel syndrome (564.1) Active confirmed Major Problem Urinary tract infectious disease (disorder) (90606874) Urinary tract infection, site not specified (599.0) Active confirmed Diag Problem Mild dysplasia of cervix (616046995) Mild dysplasia of cervix (622.11) Active confirmed Diag Problem Female genital organ symptoms (067537783) Other specified symptom associated with female genital organs (625.8) Active confirmed Major Problem Female genital organ symptoms (380626302) Unspecified symptom associated with female genital organs (625.9) Active confirmed Diag Problem Abnormal vaginal bleeding (922601784) Other disorder of menstruation and other abnormal bleeding from female genital tract (626.8) Active confirmed Diag Problem Gynecological examination normal (520526014578843) Routine gynecological examination (V72.31) Active confirmed Diag Problem Contraception care education (936532628) Other general counseling and advice for contraceptive management (V25.09) Active confirmed Diag Problem Dietary management surveillance (958337056) Dietary surveillance and counseling (V65.3) Active confirmed Diag Problem Exercises teaching, guidance, and counseling (035138808) Exercise counseling (V65.41) Active confirmed Diag Plan Of Treatment No Information Insurance Providers Payer Name Payer Address Payer Phone Subscriber Number Group Number Insured Name Patient Relationship to Insured Coverage Start Date Coverage End Date [employer] [address] [place] [id number] [id number] BOBBY WINSTON Self - patient is the insured 1
[2025-06-27 11:55] LABS: Hemoglobin A1C 145.0235 umol/L; Total Hemoglobin (HGBA1C) 3317.3160 umol/L
[2025-06-27 12:04] LABS: Alanine Aminotransferase 21 U/L (0-31); Albumin Level 4.4 g/dL (3.5-5.0); Alkaline Phosphatase 135 U/L (39-117); Anion Gap 10 (12-20); Aspartate Amino Transferase 26 U/L (5-31); Blood Urea Nitrogen 16 mg/dL (9-16); Calcium 9.6 mg/dL (8.4-10.2); Carbon Dioxide 28 mmol/L (22-29); Chloride 105 mmol/L (96-108); Estimated Glomerular Filt Rate > 60; Potassium 4.3 mmol/L (3.3-5.1); Sodium 139 mmol/L (135-145); Total Protein 7.5 g/dL (6.5-8.0)
== END 2025-06-27 07:30 | disposition home or self-care (01) ==
LOC: HO.WFDLDS 07:29
PROVIDERS: Visit Provider Internal Medicine
DX: E11.9 Type 2 diabetes mellitus without complications (principal); J45.40 Moderate persistent asthma, uncomplicated
CPT/HCPCS: 36415; 80053; 83036

== ENCOUNTER 2025-09-16 09:01 | Outpatient (AMB) | payer OTHER, SELFPAY ==
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
[2025-09-16 09:11] VITALS: BP 104/68; PULSE 117; RESP 15; TEMP 36.4; O2SAT 97; BMI 29.6
--- OUTSIDE RECORDS SUMMARY | 2025-09-16 10:11 | XMS_ITS | Clinical Summary ---
Author Organization [facility] Address [address] [place] [address] Phone Care Team Providers Care Webmethods Consultant Name Role Phone Kathryn De La Vega MD Primary Care Provider Allergies No known active allergies Surgical History Surgery Date Site/Laterality Comments OTHER SURGICAL HISTORY 2006 PROCEDURE: HISTORICAL EAR SURGERY; COMMENT: tubes on ear TONSILLECTOMY ADENOIDECTOMY, BILATERAL MYRINGOTOMY AND TUBES child PROCEDURE: [place] TONSILLECTOMY & ADENOIDECTOMY <AGE 13 Medical History [...] on file Sexual Orientation Not on file Plan of Treatment Health Maintenance Due Date Last Done Comments Pneumococcal Vaccine: Pediatrics (0 to 5 Years) and At-Risk Patients (6 to 49 Years) (1 of 2 - PCV) 2000 Cervical Cancer Screening: Pap Smear 2002 HPV Vaccines (1 - 3-dose SCDM series) 2008 HIV Screening 09/10/2022 Hepatitis C Screening 09/10/2022 Social Influencers of Health Screening 09/10/2022 Breast Cancer Screening 11/09/2023 11/09/19, 11/09/2021, 11/08/2021 Depression Screening 10/02/2024 COVID-19 Vaccine ( - 2024- season) 2025 07/10/2021, 11/07/2020, 10/17/2020 Influenza Vaccine (#1) 2025 , 07/07/2023, 07/27/2022, Additional history exists DTaP,Tdap,and Td Vaccines (5 - Td or Tdap) 07/09/2028 07/09/2018, 03/19/2014, 08/09/2012, Additional history exists RSV Immunization Adult Patients (1 - 1-dose 75+ series) 2056 MMR Vaccines Completed 05/02/1994, 11/30/1982 Hepatitis B [...] with 2-D and Tomosynthesis were obtained to unoyde1111/08/2021 exam. Microcalcifications of concern appear to be mostly punctate and looselygrouped. They are probably benign. No other focal abnormalities are identified as aprecaution six- month follow-up mammogram of the right breast is recommended which could belimited to magnification views. Findings were explained to the patient. Appointment isscheduled. CONCLUSIONS: Probably benign microcalcifications in the upper outer rightbreast. BIRADS 3, probably benign findings. Kathryn De La Vega MD IMG BI PROCEDURES Final Result from Last 3 Months or Most Recently Relevant to Health Maintenance Insurance [facility] [address] [place] [address] Care Teams Webmethods Consultant Relationship Specialty Start Date End Date Kathryn De La Vega MD [address] [facility] [address] [place] [address] PCP - General Internal Medicine 12/02/24
--- OUTSIDE RECORDS SUMMARY | 2025-09-16 10:11 | XMS_ITS | Patient Health Record ---
Author Organization [facility] Address [address] [place] [address] Support Name Relationship Address Phone BOBBY WINSTON Guarantor Unknown [phone] Reason For Referral No Information Medications Medication SIG (Take, Route, Frequency, Duration) Notes Start Date End Date Status Vitamins 1 mg folate 1 ORAL daily; Duration: -3 Rubio-MJ 08/20/2013 Active Immunizations Vaccine Route Administration Date Status Comme nts Tdap Unknown 02/22/2013 Pending Problems Problem Type SNOMED Code ICD Code Onset Dates Problem Status W/U Status Risk Notes Problem Irritable bowel syndrome (07213389) Irritable bowel syndrome (564.1) Active confirmed Major Problem Urinary tract infectious disease (disorder) (75746413) Urinary tract infection, site not specified (599.0) Active confirmed Diag Problem Mild dysplasia of cervix (727991089) Mild dysplasia of cervix (622.11) Active confirmed Diag Problem Female genital organ symptoms (216870106) Other specified symptom associated with female genital organs (625.8) Active confirmed Major Problem Female genital organ symptoms (965072666) Unspecified symptom associated with female genital organs (625.9) Active confirmed Diag Problem Abnormal vaginal bleeding (802785151) Other disorder of menstruation and other abnormal bleeding from female genital tract (626.8) Active confirmed Diag Problem Gynecological examination normal (486488765384873) Routine gynecological examination (V72.31) Active confirmed Diag Problem Contraception care education (403440596) Other general counseling and advice for contraceptive management (V25.09) Active confirmed Diag Problem Dietary management surveillance (270999638) Dietary surveillance and counseling (V65.3) Active confirmed Diag Problem Exercises teaching, guidance, and counseling (106080728) Exercise counseling (V65.41) Active confirmed Diag Plan Of Treatment No Information Insurance Providers Payer Name Payer Address Payer Phone Subscriber Number Group Number Insured Name Patient Relationship to Insured Coverage Start Date Coverage End Date [employer] [address] [place] [phone] [id number] BOBBY WINSTON Self - patient is the insured 1
== END 2025-09-16 09:32 | disposition home or self-care (01) ==
LOC: HO.HMCFM 09:02
PROVIDERS: PCP Internal Medicine; Visit Provider Internal Medicine
DX: E11.9 Type 2 diabetes mellitus without complications (principal); E78.00 Pure hypercholesterolemia, unspecified

== ENCOUNTER 2025-09-16 09:01 | Outpatient (REF) | payer OTHER, SELFPAY ==
--- OUTSIDE RECORDS SUMMARY | 2025-09-16 11:20 | XMS_ITS | Data Portability ---
Author Organization [place] - [facility], Allergy Address [address] [address] Care Team Providers Care Consulting Solution Manager Name Role Phone WILY FUENTES Primary Care [...] in 2 to 3 months for reevaluation. Not available 09/23/2024 12:06:04 02/12/2025 02/12/2025 Status [...] versus consultation with Dr. Sin Denton at [facility] to discuss other treatments for patulous eustachian tube. She has taken this under advisement and will think about these options prior to making any decisions. [email or web address] Not available 02/12/2025 10:09:31 Plan of Treatment Reminders Order Date Submit Date Provider Last Modified By Organization Details Last Modified Time Details Appointments None recorded. Lab None recorded. Referral None recorded. Procedures None recorded. Surgeries None recorded. Imaging None recorded. Medication Orders fluocinolon e acetonide oil 0.01 % ear drops 2023 024 [id number], [address] [place], [place], [phone], 4 12:06:56 clotrimazol e-betametha sone 1 %-0.05 % topical cream 2023 025 [facility] [id number], [address] [place], [place], [phone], 5 09:52:15 Patient TargetsNo targets recorded. Patient [...] audio gram No observ ation record ed. [email or web address] Not Available 06/03 14:19:59 09/23/20 24 audio gram No observ ation record ed. BARCODE Not Available 2023 13:53:00 02/13/20 audio gram No observ ation record ed. BARCODE Not Available 2024 12:04:23 Result Notes None recorded. Problems Name Problem SNOMED Code Status Onset Date Resolution Date Notes Provider Name and Address Organization Details Recorded Time Bilateral tinnitus 11557795663 02 Active 2021 Tinnitus, bilateral ; Note: Date Diagnosed : 2 2:27 PM (H93.13) Not Available [facility] 4 02:48:04 Bilateral disorder of Eustachia n tubes 48111326413 88020 Active 2021 Other specified disorders of Eustachia n tube, bilateral ; Note: Date Diagnosed : 2 2:23 PM (H69.83) Not Available [facility], [facility] 4 02:48:08 Adhesive middle ear disease 0345933 Active 2022 Adhesive middle ear disease, bilateral ; Note: Date Diagnosed : 01/24/2023 4:59 PM (H74.13) Not Available [facility], [facility] 4 02:48:06 Recurrent acute serous otitis media of left middle ear 67925538356 38056 Active 2022 Acute serous otitis media, recurrent , left ear; Note: Date Diagnosed : 06/15/2023 9:17 AM (H65.05) Not Available [facility], [facility] 4 02:48:04 Allergic urticaria 12575390 Active 2023 Allergic urticaria ; Note: Date Diagnosed : 10/03/2023 3:03 PM (L50.0) Not Available [facility], [facility] 4 02:48:04 Dermal mycosis 72551595 Active 2023 VICKIE JEFFRIES MD [address] [facility],[place] [address], [place], [address] , [facility] - [facility] 4 15:32:48 Chronic mycotic otitis externa 086271321 Active 2023 VICKIE JEFFRIES MD [address] [facility],[place] [address], [place], [address] , [facility] - [facility] 4 15:32:48 Candidal otitis externa 88291707 Active 2023 VICKIE JEFFRIES MD [address] [facility],[place] [address], [place], [address] , [facility] - [facility] 4 15:32:48 Acute maxillary sinusitis 66804095 Active 2023 VICKIE JEFFRIES MD [address] [facility],[place] [address], [place], [address] , [facility] - [facility] 4 15:35:32 Eczema of external auditory canal 52133933 Active 2023 APPLE STEINBERG PA-C [address] [facility],[place] [address], [place], [place], [address] , [facility] - [facility] 4 12:06:14 Sensorine ural hearing loss of bilateral ears 978170528 Active 2024 Bola KESSLER [address] [facility],[place] [address], [place], [address] , [facility] - [facility] 5 09:15:21 Patulous right Eustachia n tube 59571443794 54850 Active 2024 VICKIE JEFFRIES MD [address] [facility],[place] [address], [place], [address] , [facility] - [facility] 5 10:06:24 Problem Notes None recorded. Procedures Surgical History Date Name Laterality Status Provider Name and Address Organization Details Recorded Time 02/13/20 25 Air & Speech Audio with Tymps - 54777, 72694 & 14977 completed SONIYASABINA ARVIZU, AuD [address], [place], [address], [facility] 02/12/2025 09:14:02 09/23/20 24 Air & Speech Audio with Tymps - 84329, 09331 & 67094 completed JUAN PABLO FRAGASILVIA, AUD [address] [facility], [place], [address], [facility] 09/23/2024 10:27:29 06/26/20 24 Tympanometry - 90368 completed SANCHEZ MORALESNAUGH, AUD [address] [facility], [place], [address], [facility] 06/26/2024 10:19:39 Imaging Results None recorded. Procedure Notes None recorded. Medical Equipment None Reported. Allergies Allergen ID Allergen Name Allergen Category Reaction Reaction Severity Criticality Documentation Date Start Date Code Code System Note Provider Name and Address Organization Details Recorded Time 237452 linalool, (+-)- Not available other Not available Not available 02/13/2024 93900 96 RxNorm React ion: Unkno wn; Not Available [facility] 4 01:12:33 960209 Latex (substanc e) environme nt,medica tion other Not available Not available 05/03/2024 23502 8007 SNOMED React ion: Unkno wn; Not Available [facility] 4 00:30:53 247957 2-methyl- 4-isothia zolin-3-o ne Not available other Not available Not available 05/03/2024 23845 66 RxNorm React ion: Unkno wn; Not Available [facility] 4 00:30:53 942819 methyldib tinsley glutaroni trile Not available other Not available Not available 05/03/2024 66583 44 RxNorm React ion: Unkno wn; Not Available [facility] 4 00:30:54 698677 [place] oil medicatio n other Not available Not available 05/03/2024 22405 14 RxNorm React ion: Unkno wn; Not Available [facility] 4 00:30:54 Medications Name Sig Start [...] [place] - [facility] 02/12/2025 09:51:08 Date Recorded Body height Body mass index (BMI) Body weight Provider Name and Address Organization Details Last Updated DateTime 06/26/2024 160.02 cm 35.4 kg/m2 58900.47 g Edilma Drew [facility] 06/26/2024 10:04:23 Date Recorded Body height Body mass index (BMI) Body weight Provider Name and Address Organization Details Last Updated DateTime 09/23/2024 160.02 cm 35.4 kg/m2 76330.47 g Jane Lang [facility] 09/23/2024 10:07:43 Social History Question Answer Notes LastModified by Organizat ion Details LastModified Time Tobacco Smoking Status Never Smoker Zaynab dior [facility] 02/20/2024 15:22:06 What Type Of Media Reconciliation Specialist Do You Use? None Information not available 02/12/2025 Do You Have Any Pets? Yes [email or web address] Information not available 02/12/2025 Are You Passively Exposed To Smoke? No [email or web address] Information not available 02/12/2025 Are There Any Smokers In Your House? No [email or web address] Information not available 02/12/2025 Sex: Unknown Functional Status Question Answer Note LastModified by Organization Details LastModified Time Do you use any illicit or recreational drugs? No [email or web address] Information not available 02/12/2025 Do you or have you ever used any other forms of tobacco or nicotine? No [email or web address] Information not available 02/12/2025 What is your level of alcohol consumption? None [email or web address] Information not available 02/12/2025 What type of noise exposure are you exposed to? noExposureToExcessiveNoise [email or web address] Infor mation not available 02/12/2025 Mental Status None recorded. Family History Relationship Description Onset Age of this Age Resolved Age Notes LastModified by Organization Details LastModified Time Mother Migraine [email or web address] Not avail able 02/12/2025 09:53:39 Mother Vertigo [email or web address] Not availa ble 02/12/2025 09:53:40 Mother Diabetes mellitus [email or web address] Not available 09:53:40 Sister Migraine [email or web address] Not avail able 02/12/2025 09:53:40 Father Hereditary hearing loss [email or web address] Not available 02/12/2025 09:53:40 Medical History Condition Response Allergies/Hayfever Y Heart Problems N Anxiety N Tonsil Infections N Emphysema N Migraines N Thyroid Problems N Glaucoma N Depression N COPD N Developmental Delay N Nasal or Sinus Problems N Anemia N Immune System Disorder N Anesthesia Complications N Heart Attack (SC) N Other Skin Condition Y Diabetes N Rhinitis N Bleeding Disorder N Food Allergy N Arthritis N Hearing Loss N Hyperlipidemia N Cancer N Stroke N Dementia N Nasal polyps N Asthma Y Sleep Disorder N GERD/Reflux N High Cholesterol Y Liver Disease N Headaches Y Fibromyalgia N Hypertension N Speech Delay N Kidney Disease N Gynecological HistoryNo gynecological history recorded. Obstetrics History GPAL:G 0 P 0 0 0 0 Past Encounters Encounter ID Performer Location Encounter Start Date Encounter Closed Date Diagnosis/Indication Diagnosis SNOMED-CT Code Diagnosis ICD10 Code Diagnosis IMO Codes Diagnosis Note [id number] VICKIE JEFFRIES MD [facility] [address] [address] 02/20/2024 14:44:20 02/20/2024 15:38:45 Bilateral disorder of Eustachian tubes 7391702550 810349 H69.83 Both tympanosto my tubes remain in good position and patent. Continue with observatio n and follow-up with the PA in 4 months for tube check. Dermal mycosis 98409113 B36.9 The skin of the bilateral external [...] of recurrence . Acute maxi llary sinusitis 59307605 J01.00 Patient's recent symptoms are consistent with acute sinusitis which is in the process of resolving. Recommende d oxymetazol ine nasal spray to be used twice a day for 4 days only. Recommende d use of nasal saline spray to help wash out the nasal cavities and sinuses. Unlikely she will need antibiotic s. [id number] MONIKA PEOPLES PA-C [facility] [address] [address] 06/26/2024 09:40:01 06/26/2024 10:37:15 Bilateral disorder of Eustachian tubes 0133343063 233500 H69.83 Tympanomet ry:Right ear: Type CLeft ear: Type B, Large volume Adhesive m iddle ear disease 3647449 H74.13 [id number] APPLE STEINBERG PA-C [facility] [address] [address] 09/23/2024 10:01:47 09/23/2024 11:09:17 Bilateral disorder of Eustachian tubes 4951972793 031622 H69.93 Right Ear:Normal hearing .Type A tympanogra m.Left Ear:Normal hearing.Ty pe A tympanogra m. Eczema of external auditory canal 88908861 H60.549 [id number] VICKIE JEFFRIES MD [facility] [address] [address] 02/12/2025 08:56:40 02/12/2025 11:38:33 Sensorineural hearing loss of bilateral ears 316752153 H90.3 [id number] Audiologic al evaluation results:Ri ght ear:Normal hearing [...] hearing loss. Patulous r ight Eustachian tube 4943447995 260703 H69.01 [id number] Health Concerns Section Related Observation LastModified by Organization Detai ls LastModified Time None Recorded Concern Status LastModified by Organization Details LastModified Time None Recorded Advance Directives Directive None Recorded Payers Insurance Date Sequence Insurance Name Policy Number Policy Yo Covered Member ID Yo Member ID Guarantor Name 02/12/2025 1 [facility] [id number] Kristen Yo [id number] Kristen Yo Notes Date Note Type Note [...] chills and headache. VICKIE JEFFRIES MD [address] [facility],[address], [address], [facility] 03/04/2024 07:43:08 06/26/2024 text/html ROS as noted in the [facility] 43 year old female presents for tube [...] Q-tips at the meatus. WANDA JANG MD [address] [place] [address],[address], [address], [facility] 06/26/2024 12:42:29 09/23/2024 text/html ROS as noted in the [facility] 44-year-old female with history of bilateral eustachian [...] History of eczema. WANDA JANG MD [address] [facility],[address], [address], [facility] 09/23/2024 13:00:45 02/12/2025 text/html Status post [...] discontinuing topical Flonase spray. VICKIE JEFFRIES MD [address] [place] [address], [place], [address], [facility] 02/12/2025 10:10:30 OBGyn Episode No OBEpisode recorded.
[2025-09-16 11:22] LABS: MANUAL DIFF FLAG NO
[2025-09-16 11:32] LABS: Hematocrit 40.7 % (37.0-47.0); Hemoglobin 13.3 g/dl (12.0-16.0); Imm Gran Abs Auto 0.02 X10*3/uL (0.00-0.03); Imm Gran Pct Auto 0.2 % (0.0-0.4); Lymphocytes Absolute Auto 1.1 X10*3/uL (1.2-4.9); Mean Corpuscular HGB Conc 32.7 g/dl (31.0-35.0); Mean Corpuscular Hemoglobin 27.6 pg (27.0-33.0); Mean Corpuscular Volume 84.4 fL (80.0-98.0); NRBC Abs Auto 0.000 X10*3/uL (0.0-0.012); NRBC Pct Auto 0.0 /100WBC (0.0-0.2); Platelet Count 426 X10*3/uL (160-400); Red Blood Count 4.82 X10*6/uL (4.20-5.50); White Blood Count 8.8 X10*3/uL (4.8-10.8)
[2025-09-16 12:00] LABS: Alanine Aminotransferase 30 U/L (0-31); Albumin Level 4.6 g/dL (3.5-5.0); Alkaline Phosphatase 150 U/L (39-117); Anion Gap 10 (12-20); Aspartate Amino Transferase 67 U/L (5-31); Blood Urea Nitrogen 19 mg/dL (9-16); Calcium 9.9 mg/dL (8.4-10.2); Carbon Dioxide 26 mmol/L (22-29); Chloride 104 mmol/L (96-108); Cholesterol 253 mg/dL (<200); Estimated Glomerular Filt Rate > 60; HDL Cholesterol 41 mg/dL (>40); Potassium 4.3 mmol/L (3.3-5.1); Sodium 136 mmol/L (135-145); Total Protein 8.1 g/dL (6.5-8.0); Triglycerides 322 mg/dL (<150)
== END 2025-09-16 09:02 | disposition home or self-care (01) ==
LOC: HO.WFDLDS 09:01
PROVIDERS: PCP Internal Medicine; Visit Provider Internal Medicine
DX: Z13.0 Encounter for screening for diseases of the blood and blood-forming organs and certain disorders involving the immune mechanism (principal); E11.9 Type 2 diabetes mellitus without complications; E78.00 Pure hypercholesterolemia, unspecified
CPT/HCPCS: 36415; 80053; 80061; 83036; 85025